=== PATIENT | male | born 1985 | race Caucasian/White ===

== ENCOUNTER → 2021-05-28 12:09 | Outpatient (BNVA) | payer MEDICAID, SELFPAY | PROVIDERS: Family Provider Nurse Practitioner Family; PCP Nurse Practitioner Family; Visit Provider Nurse Practitioner Family | DX: R53.83 Other fatigue (principal); L08.9 Local infection of the skin and subcutaneous tissue, unspecified; E55.9 Vitamin D deficiency, unspecified; Z13.6 Encounter for screening for cardiovascular disorders; Z79.899 Other long term (current) drug therapy | CPT/HCPCS: 73630; 80053; 80061; 81003; 82306; 83036; 84439; 84443; 85025; 86140; 87070; 87075; 87184; 87205 ==